=== PATIENT | male | born 1950 ===

== ENCOUNTER → 2020-03-06 11:05 | Outpatient (BNVA) | payer OTHER, SELFPAY | PROVIDERS: PCP Internal Medicine; Referring Provider Internal Medicine; Visit Provider Internal Medicine Pulmonary Disease | DX: Z76.89 Persons encountering health services in other specified circumstances (principal) ==

== ENCOUNTER 2023-01-06 13:49 | Outpatient (AMB) | payer OTHER, SELFPAY ==
[2023-01-06 13:50] VITALS: BP 94/62; PULSE 75; O2SAT 94; BMI 26.3
--- NOTE | 2023-01-06 13:50 | A.OFFVIS_ITS ---
Intake Vital Signs 01/06/23 13:50 Height 5 ft 4 in Weight 153 lb 3.54 oz BMI 26.3 BP 94/62 Blood Pressure Location Lt brachial Position Sitting Pulse 75 Pulse Source Pulse Oximeter Pulse Oximetry (%) 94 Oxygen Delivery Method Room Air Intake Visit Reasons: MAC Allergies moxifloxacin [From Avelox] Allergy (Verified 01/06/23 13:56) Unknown HPI MAC HPI Details ?72-year-old gentleman, lifetime nonsmoker, with remote history of mycobacterium avium complex infection, previously treated in [place], per patient with two months course of Augmentin with resolution, now referred for right upper quadrant pain associated with breathing and possible exacerbation of his chronic MAC infection.? He was last seen approximately 3 years prior and treated with a course of Augmentin with resolution of his symptoms. Now patient presents complaining of similar symptoms wanting another course of Augmentin. [facility] Social History (Updated 01/06/23 @ 13:55 by Daisy Ojeda [facility]) Patient Tobacco Use Status: Former Tobacco user Review of Systems Const Denies daytime sleepiness, Denies excessive sweating, Denies fatigue, Denies fever(s), Denies lethargy, Denies malaise, Denies night sweats, Denies snoring and Denies weight loss Eyes Denies blurry vision and Denies itchy eyes ENT Denies nasal congestion, Denies post nasal drip, Denies sinus pain, Denies sinus pressure and Denies other ( Thrush) Card Denies chest pain, Denies pedal edema, Denies dyspnea, Denies orthopnea and Denies paroxysmal nocturnal dyspnea Resp Reports cough, Denies hemoptysis, Reports excessive phlegm production, Denies dyspnea, Denies snoring and Denies wheezing GI Denies abdominal pain and Denies heartburn Musc Denies myalgias, Denies arthralgias and Denies joint swelling Skin/Breast Denies rash Neuro Denies memory loss and Denies seizure-like activity Psych Denies abnormal sleep pattern, Denies anxiety and Denies memory loss Endo Denies excessive sweating, Denies fatigue and Denies heat intolerance Herb/Lymph Denies easy bruising Aller/Immun Denies itchy eyes, Denies seasonal rhinorrhea and Denies wheezing Physical Exam Vital Signs: Last Vital Signs Pulse 75 01/06/23 13:50 BP 94/62 01/06/23 13:50 Pulse Ox 94 01/06/23 13:50 Oxygen Delivery Method Room Air 01/06/23 13:50 BMI result Body Mass Index 26.3 Const General: no acute distress and alert Nutritional Appearance: not obese Orientation/consciousness: Other orientation findings ( oriented) HEENT Head: Yes atraumatic Eyes General: appearance normal, both eyes and all related structures Sclerae: sclerae normal EOM: EOMs intact bilaterally Neck Neck: Yes supple Lymphatic: no lymphadenopathy noted Resp Effort & Inspection: normal respiratory effort and no use of accessory muscles Auscultation: clear to auscultation bilaterally Cardio Rate: regular rate Rhythm: regular rhythm Heart sounds: no gallops, no murmurs and no rubs Skin General skin exam: other ( warm) Extrem General: No clubbing, No cyanosis and No edema Assessment & Plan Assessment & Plan (1) Mycobacterium avium complex: Code(s): A31.0 - Pulmonary mycobacterial infection Plan: Will obtain CT chest for further evaluation. (2) Bronchiectasis: Code(s): J47.9 - Bronchiectasis, uncomplicated Plan: Will treat acute exacerbation with a course of Augmentin. Orders: Orders CT chest wo IV con Today A31.0 - Pulmonary mycobacterial infection Medications: New amoxicillin-pot clavulanate 875-125 mg 1 tab PO BID 28 tabs 0RF 14 days Coding Level of Care Code New Pt Level 4 (71306) Diagnoses Mycobacterium avium complex A31.0 Bronchiectasis J47.9
== END 2023-01-06 14:07 | disposition home or self-care (01) ==
PROVIDERS: PCP Internal Medicine; Visit Provider Internal Medicine Pulmonary Disease
DX: A31.0 Pulmonary mycobacterial infection (principal); J47.9 Bronchiectasis, uncomplicated
CPT/HCPCS: 99214

== ENCOUNTER → 2023-01-06 13:49 | Outpatient (BNVA) | payer OTHER, SELFPAY | PROVIDERS: PCP Internal Medicine; Visit Provider Internal Medicine Pulmonary Disease ==

== ENCOUNTER 2023-03-30 13:13 | Outpatient (REF) | payer OTHER, SELFPAY ==
--- NOTE | ~2023-03-30 | CT_ITS ---
EXAMINATION: CT CHEST WITHOUT CONTRAST CLINICAL INFORMATION: Pulmonary mycobacterial infection. COMPARISON: None available. TECHNIQUE: Multidetector volumetric CT imaging of the chest was done. Axial MIP volume rendering provided. Sagittal and coronal reformatted images were obtained. This CT examination was performed using dose optimization techniques as appropriate, variously including the following: *Automated exposure control *Adjustment of mA and/or kV according to patient size (this includes techniques or standardized protocols for targeted exams where dose is matched to indication/reason for exam; i.e. extremities or head) *Use of iterative reconstruction technique DLP: 153 mGy-cm FINDINGS: LUNGS: The right upper lobe is collapsed and is up against the middle mediastinum with extensive bronchiectatic and cystic changes throughout the upper lobe (7:62). Mild peribronchial thickening is present elsewhere. Scattered calcified pulmonary granulomas are seen with a cluster of calcified granulomas seen near the azygoesophageal recess (5:447-459). There are some tree-in-bud densities noted along with some areas of bronchial mucus inspissation most prominent in the right middle lobe and lingula. Pleural-based 7 mm nodule in the left lower lobe laterally (5:436). MEDIASTINUM: There are some small mediastinal lymph nodes present but no adenopathy. No calcified mediastinal or hilar nodes are seen. CORONARY ARTERY CALCIFICATION: Moderate. PLEURA: There is no pleural effusion. No pleural mass or thickening. AXILLA: No lymphadenopathy. UPPER ABDOMEN: Unremarkable. OSSEOUS STRUCTURES: Unremarkable. CT/CT chest wo IV con IMPRESSION: 1. Right upper lobe collapse with extensive bronchiectatic and cystic changes throughout the upper lobe. 2. Scattered calcified pulmonary granulomas. 3. Tree-in-bud densities along with some areas of bronchial mucus inspissation most prominent in the right middle lobe and lingula. 4. Pleural-based 7 mm nodule left lower lobe laterally. Per the 2017 revised Fleischner Society guidelines, non-contrast chest CT at 6-12 months is recommended. If the nodule is stable at time of repeat CT, then future CT at 18-24 months (from today?s scan) is considered optional for low-risk patients, but is recommended for high-risk patients. 5. No calcified mediastinal or hilar nodes are seen. Fleischner guidelines were followed.
== END 2023-03-30 13:14 | disposition home or self-care (01) ==
LOC: HO.CT 13:13
PROVIDERS: PCP Physician Assistant; Visit Provider Internal Medicine Pulmonary Disease
DX: A31.0 Pulmonary mycobacterial infection (principal)
CPT/HCPCS: 71250

== ENCOUNTER 2023-04-16 15:18 | Outpatient (AMB) | payer OTHER, SELFPAY ==
[2023-04-16 15:19] VITALS: BP 118/62; PULSE 77; O2SAT 98; BMI 27.2
--- NOTE | 2023-04-16 15:19 | A.OFFVIS_ITS ---
Intake Vital Signs 04/16/23 15:19 Height 5 ft 4 in Weight 158 lb 11.725 oz BMI 27.2 BP 118/62 Blood Pressure Location Rt brachial Position Sitting Pulse 77 Pulse Source Doppler Pulse Oximetry (%) 98 Oxygen Delivery Method Room Air Intake Visit Reasons: CT Follow Up Postal Worker Required: Yes Postal Worker Name: Daisy Stepan Rodriguez Allergies moxifloxacin [From Avelox] Allergy (Verified 04/16/23 15:20) Unknown HPI CT Follow Up HPI Details 73-year-old gentleman, lifetime nonsmoke r, with remote history of mycobacterium avium complex infection, previously treated in [place], per patient with two months course of Augmentin with resolution, now referred for right upper quadrant pain associated with breathing and possible exacerbation of his chronic MAC infection.? Arthroplasty pits visit patient was treated with a course of Augmentin with resolution of his symptoms. He also completed his CT chest that shows bronchiectasis and collapse of the right upper lobe. [facility] Social History Patient Tobacco Use Status: Former Tobacco user Review of Systems Const Denies daytime sleepiness, Denies excessive sweating, Denies fatigue, Denies fever(s), Denies lethargy, Denies malaise, Denies night sweats, Denies snoring and Denies weight loss Eyes Denies blurry vision and Denies itchy eyes ENT Denies nasal congestion, Denies post nasal drip, Denies sinus pain, Denies sinus pressure and Denies other ( Thrush) Card Denies chest pain, Denies pedal edema, Denies dyspnea, Denies orthopnea and Denies paroxysmal nocturnal dyspnea Resp Denies cough, Denies hemoptysis, Denies excessive phlegm production, Denies dyspnea, Denies snoring and Denies wheezing GI Denies abdominal pain and Denies heartburn Musc Denies myalgias, Denies arthralgias and Denies joint swelling Skin/Breast Denies rash Neuro Denies memory loss and Denies seizure-like activity Psych Denies abnormal sleep pattern, Denies anxiety and Denies memory loss Endo Denies excessive sweating, Denies fatigue and Denies heat intolerance Herb/Lymph Denies easy bruising Aller/Immun Denies itchy eyes, Denies seasonal rhinorrhea and Denies wheezing Physical Exam Vital Signs: Last Vital Signs Pulse 77 04/16/23 15:19 BP 118/62 04/16/23 15:19 Pulse Ox 98 04/16/23 15:19 Oxygen Delivery Method Room Air 04/16/23 15:19 BMI result Body Mass Index 27.2 Const General: no acute distress and alert Nutritional Appearance: not obese Orientation/consciousness: Other orientation findings ( oriented) HEENT Head: Yes atraumatic Eyes General: appearance normal, both eyes and all related structures Sclerae: sclerae normal EOM: EOMs intact bilaterally Neck Neck: Yes supple Lymphatic: no lymphadenopathy noted Resp Effort & Inspection: normal respiratory effort and no use of accessory muscles Auscultation: clear to auscultation bilaterally Cardio Rate: regular rate Rhythm: regular rhythm Heart sounds: no gallops, no murmurs and no rubs Skin General skin exam: other ( warm) Extrem General: No clubbing, No cyanosis and No edema Assessment & Plan Assessment & Plan (1) Bronchiectasis: Code(s): J47.9 - Bronchiectasis, uncomplicated (2) Mycobacterium avium complex: Code(s): A31.0 - Pulmonary mycobacterial infection Plan Resolution of symptoms of the course of Augmentin. No recent exacerbations. CT chest with bronchiectasis and collapse of the right upper lobe. If patient starts having refractory bronchiectasis related symptoms, will consider referral to thoracic surgery for right upper lobe resection. Coding Level of Care Code Est Pt Level 4 (78980) Diagnoses Bronchiectasis J47.9 Mycobacterium avium complex A31.0
== END 2023-04-16 15:31 | disposition home or self-care (01) ==
PROVIDERS: PCP Physician Assistant; Visit Provider Internal Medicine Pulmonary Disease
DX: Z23 Encounter for immunization (principal)
CPT/HCPCS: 99214

== ENCOUNTER → 2023-04-16 15:18 | Outpatient (BNVA) | payer OTHER, SELFPAY | PROVIDERS: PCP Physician Assistant; Visit Provider Internal Medicine Pulmonary Disease | DX: J47.9 Bronchiectasis, uncomplicated (principal); A31.0 Pulmonary mycobacterial infection; Z23 Encounter for immunization | CPT/HCPCS: 90471; 90677 ==

== ENCOUNTER 2023-10-21 15:44 | Outpatient (AMB) | payer OTHER, SELFPAY ==
[2023-10-21 15:45] VITALS: BP 104/62; PULSE 83; O2SAT 96; BMI 27.1
--- NOTE | 2023-10-21 15:45 | A.OFFVIS_ITS ---
Vital Signs 10/21/23 15:45 Height 5 ft 4 in Weight 158 lb BMI 27.1 BP 104/62 Blood Pressure Location Rt brachial Position Sitting Pulse 83 Pulse Source Doppler Pulse Oximetry (%) 96 Oxygen Delivery Method Room Air Intake Visit Reasons: mac Offal Worker Required: Yes Offal Worker Name: Daisy Ying Jennifer Allergies moxifloxacin [From Avelox] Allergy (Verified 04/16/23 15:20) Unknown HPI HPI mac : Details: 73-year-old gentleman, lifetime nonsmoker, with remote history of mycobacterium avium complex infection, previously treated in [place], per patient with two months course of Augmentin with resolution, now referred for right upper quadrant pain associated with breathing and possible exacerbation of his chronic MAC infection.?Previously patient was treated with a course of Augmentin with resolution of his symptoms. His CT chest shows bronchiectasis and collapse of the right upper lobe. after the last office visit patient denies any exacerbation of his underlying bronchiectatic symptoms. However, he does complain of an episode of significant right-sided thoracic radiculopathic pain that lasted for approximately 10 days and has previously recurred. He is interested in pain management evaluation. [facility] Social History Patient Tobacco Use Status: Former Tobacco user Review of Systems Const Denies daytime sleepiness, Denies excessive sweating, Denies fatigue, Denies fever(s), Denies lethargy, Denies malaise, Denies night sweats, Denies snoring and Denies weight loss Eyes Denies blurry vision and Denies itchy eyes ENT Denies nasal congestion, Denies post nasal drip, Denies sinus pain, Denies sinus pressure and Denies other ( Thrush) Card Denies chest pain, Denies pedal edema, Denies dyspnea, Denies orthopnea and Denies paroxysmal nocturnal dyspnea Resp Denies cough, Denies hemoptysis, Denies excessive phlegm production, Denies dyspnea, Denies snoring and Denies wheezing GI Denies abdominal pain and Denies heartburn Musc Denies myalgias, Denies arthralgias and Denies joint swelling Skin/Breast Denies rash Neuro Denies memory loss and Denies seizure-like activity Psych Denies abnormal sleep pattern, Denies anxiety and Denies memory loss Endo Denies excessive sweating, Denies fatigue and Denies heat intolerance Herb/Lymph Denies easy bruising Aller/Immun Denies itchy eyes, Denies seasonal rhinorrhea and Denies wheezing Physical Exam Vital Signs: Last Vital Signs Pulse 83 10/21/23 15:45 BP 104/62 10/21/23 15:45 Pulse Ox 96 10/21/23 15:45 Oxygen Delivery Method Room Air 10/21/23 15:45 BMI result Body Mass Index 27.1 Const General: no acute distress and alert Nutritional Appearance: not obese Orientation/consciousness: Other orientation findings ( oriented) HEENT Head: Yes atraumatic Eyes General: appearance normal, both eyes and all related structures Sclerae: sclerae normal EOM: EOMs intact bilaterally Neck Neck: Yes supple Lymphatic: no lymphadenopathy noted Resp Effort & Inspection: normal respiratory effort and no use of accessory muscles Auscultation: clear to auscultation bilaterally Cardio Rate: regular rate Rhythm: regular rhythm Heart sounds: no gallops, no murmurs and no rubs Skin General skin exam: other ( warm) Extrem General: No clubbing, No cyanosis and No edema Assessment & Plan Assessment & Plan (1) Bronchiectasis: Code(s): J47.9 - Bronchiectasis, uncomplicated Category: Medical Plan: No recent exacerbations. Continue to monitor clinically. (2) Mycobacterium avium complex: Code(s): A31.0 - Pulmonary mycobacterial infection Category: Medical Plan: No recent exacerbations. (3) Thoracic radiculopathy: Code(s): M54.14 - Radiculopathy, thoracic region Category: Medical Plan: Appears to have thoracic radiculopathy. Will refer to pain management. Orders: Referrals Pain Management Referral M54.14 - Radiculopathy, thoracic region Medications: New 2 gabapentin 100 mg PO TID PRN 60 caps 0RF neuropathic pain ketorolac maximum total duration of 5 days from all oral, intranasal, or parenteral formulations 10 mg PO Q8H PRN 60 tabs 0RF pain Coding Level of Care Code Est Pt Level 4 (81906) Diagnoses Bronchiectasis J47.9 Mycobacterium avium complex A31.0 Thoracic radiculopathy M54.14
== END 2023-10-21 16:05 | disposition home or self-care (01) ==
PROVIDERS: PCP Physician Assistant; Visit Provider Internal Medicine Pulmonary Disease
DX: J47.9 Bronchiectasis, uncomplicated (principal); A31.0 Pulmonary mycobacterial infection; M54.14 Radiculopathy, thoracic region
CPT/HCPCS: 99214

== ENCOUNTER → 2023-10-21 15:44 | Outpatient (BNVA) | payer OTHER, SELFPAY | PROVIDERS: PCP Physician Assistant; Visit Provider Internal Medicine Pulmonary Disease ==

== ENCOUNTER 2024-05-04 10:39 | Outpatient (AMB) | payer OTHER, SELFPAY ==
[2024-05-04 10:41] VITALS: BP 102/60; PULSE 76; O2SAT 97; BMI 27.3
--- NOTE | 2024-05-04 10:41 | MHC.OFFVIS ---
Vital Signs 05/04/24 10:41 Height 5 ft 4 in Weight 159 lb BMI 27.3 BP 102/60 Blood Pressure Location Rt brachial Position Sitting Pulse 76 Pulse Source Doppler Pulse Oximetry (%) 97 Oxygen Delivery Method Room Air Intake Visit Reasons: MAC Assistant Clinical Director Required: Yes Assistant Clinical Director Name: Daisy Ying Jennifer Allergies moxifloxacin [From Avelox] Allergy (Verified 04/16/23 15:20) Unknown HPI HPI MAC: Details: 73-year-old gentleman, lifetime nonsmoker, with remote history of mycobacterium avium complex infection, previously treated in [place], per patient with two months course of Augmentin with resolution, now referred for right upper quadrant pain associated with breathing and possible exacerbation of his chronic MAC infection.?Previously patient was treated with a course of Augmentin with resolution of his symptoms. His CT chest shows bronchiectasis and collapse of the right upper lobe. after the last office visit patient denies any exacerbation of his underlying bronchiectatic symptoms. After the last office visit he was referred to pain management for his recurrent thoracic radiculopathy, however patient stated that he felt better and did not go to his appointment. He denies any exacerbation of his underlying bronchiectasis. [facility] Social History Patient Tobacco Use Status: Former Tobacco user Review of Systems Const Denies daytime sleepiness, Denies excessive sweating, Denies fatigue, Denies fever(s), Denies lethargy, Denies malaise, Denies night sweats, Denies snoring and Denies weight loss Eyes Denies blurry vision and Denies itchy eyes ENT Denies nasal congestion, Denies post nasal drip, Denies sinus pain, Denies sinus pressure and Denies other ( Thrush) Card Denies chest pain, Denies pedal edema, Denies dyspnea, Denies orthopnea and Denies paroxysmal nocturnal dyspnea Resp Denies cough, Denies hemoptysis, Denies excessive phlegm production, Denies dyspnea, Denies snoring and Denies wheezing GI Denies abdominal pain and Denies heartburn Musc Denies myalgias, Denies arthralgias and Denies joint swelling Skin/Breast Denies rash Neuro Denies memory loss and Denies seizure-like activity Psych Denies abnormal sleep pattern, Denies anxiety and Denies memory loss Endo Denies excessive sweating, Denies fatigue and Denies heat intolerance Herb/Lymph Denies easy bruising Aller/Immun Denies itchy eyes, Denies seasonal rhinorrhea and Denies wheezing Physical Exam Vital Signs: Last Vital Signs Pulse 76 05/04/24 10:41 BP 102/60 05/04/24 10:41 Pulse Ox 97 05/04/24 10:41 Oxygen Delivery Method Room Air 05/04/24 10:41 BMI result Body Mass Index 27.3 Const General: no acute distress and alert Nutritional Appearance: not obese Orientation/consciousness: Other orientation findings ( oriented) HEENT Head: Yes atraumatic Eyes General: appearance normal, both eyes and all related structures Sclerae: sclerae normal EOM: EOMs intact bilaterally Neck Neck: Yes supple Lymphatic: no lymphadenopathy noted Resp Effort & Inspection: normal respiratory effort and no use of accessory muscles Auscultation: clear to auscultation bilaterally Cardio Rate: regular rate Rhythm: regular rhythm Heart sounds: no gallops, no murmurs and no rubs Skin General skin exam: other ( warm) Extrem General: No clubbing, No cyanosis and No edema Assessment & Plan Assessment & Plan (1) Bronchiectasis: Code(s): J47.9 - Bronchiectasis, uncomplicated Category: Medical (2) Mycobacterium avium complex: Code(s): A31.0 - Pulmonary mycobacterial infection Category: Medical Plan Underlying bronchiectasis with prior MAC. No recent exacerbations. Continue to monitor clinically. Coding Level of Care Code Est Pt Level 3 (23685) Diagnoses Bronchiectasis J47.9 Mycobacterium avium complex A31.0
== END 2024-05-04 10:56 | disposition home or self-care (01) ==
PROVIDERS: PCP Physician Assistant; Visit Provider Internal Medicine Pulmonary Disease
DX: J47.9 Bronchiectasis, uncomplicated (principal); A31.0 Pulmonary mycobacterial infection
CPT/HCPCS: 99213